=== PATIENT | female | born 1935 | race Asian ===

== ENCOUNTER → 2021-02-03 | Day surgery (SDC) | payer OTHER ==
[2021-02-01 09:26] LABS: BASOPHILS # (AUTO) 0.1 (0.0-0.1); BASOPHILS % 0.8 % (0.0-1.0); EOSINOPHILS # (AUTO) 0.4 (0.0-0.4); EOSINOPHILS % 7.2 % (0.0-6.0); HEMATOCRIT 40.1 % (34.2-44.1); HEMOGLOBIN 12.7 g/dL (12.0-16.0); LYMPHOCYTES # (AUTO) 1.3 (1.0-3.2); LYMPHOCYTES % 21.6 % (18.0-39.1); MEAN CORPUSCULAR HEMOGLOBIN 31.3 pg (28-32); MEAN CORPUSCULAR HGB CONC 31.7 g/dL (31-35); MEAN CORPUSCULAR VOLUME 98.8 fL (81-99); MONOCYTES # (AUTO) 0.4 (0.2-0.8); MONOCYTES % 5.9 % (4.4-11.3); NEUTROPHILS # (AUTO) 3.9 (2.1-6.9); NEUTROPHILS % 64.2 % (38.7-80.0); PLATELET COUNT 112 x10e3/uL (140-360); RED BLOOD COUNT 4.06 x10e6/uL (3.6-5.1); RED CELL DISTRIBUTION WIDTH 13.1 % (11.7-14.4)
[2021-02-01 09:55] LABS: ANION GAP 12.2 mmol/L (8-16); CALCIUM 8.8 mg/dL (8.4-10.2); CREATININE, SERUM 0.78 mg/dL (0.57-1.11); POTASSIUM 4.2 mmol/L (3.5-5.1)
[~2021-02-03] MED LIST: ASPIRIN81 MG PO; BUPIVACAINE 0.25% 30ML SDV ONE; DEXTROSE 5% 250ML 250 ML IV ONE; GLYXAMBI 25 MG1 EACH PO; LIPITOR10 MG PO; TRESIBA100 UNIT/1 SC; ZESTRIL10 MG PO
[2021-02-03 13:30] VITALS: BP 130/77
== END | disposition home or self-care (01) ==
LOC: OR 08:18
PROVIDERS: ATTEND Podiatrist Foot Surgery
DX: E11.69 Type 2 diabetes mellitus with other specified complication (principal); M86.671 Other chronic osteomyelitis, right ankle and foot; M79.672 Pain in left foot; L89.894 Pressure ulcer of other site, stage 4; I10 Essential (primary) hypertension; Z01.810 Encounter for preprocedural cardiovascular examination; Z01.812 Encounter for preprocedural laboratory examination; Z01.818 Encounter for other preprocedural examination; Z20.822 Contact with and (suspected) exposure to COVID-19; Z79.82 Long term (current) use of aspirin; Z79.4 Long term (current) use of insulin
CPT/HCPCS: 28112; 28810; 36415 ×2; 71046; 76000; 80048; 82948; 85025; 87071; 87075; 87186; 87205; 88305; 88311; 93005; J0690; J7070; U0002; V2790; 88304